=== PATIENT | female | born 1985 | race African-American/Black ===

== ENCOUNTER 2016-08-01 06:26 | Emergency (ER) | payer MEDICAID ==
[~2016-08-01] VITALS: Ht 170.2 cm; Wt 57.0 kg
[~2016-08-01 06:26] MED LIST: ALBUTEROL
[2016-08-01] MEDS ORDERED: ALBUTEROL (0.083%) 2.5MG/3ML NEB HHN STA (06:49)
[2016-08-01] MEDS ORDERED: METHYLPREDNISOLONE SOD SUCC 125 MG/2 ML VIAL IV STA (06:49)
[2016-08-01] MEDS ORDERED: IPRATROPIUM BROMIDE (0.02%) 0.5MG/2.5ML NEB HHN STA (06:49)
[2016-08-01] MEDS ORDERED: IPRATROPIUM/ALBUTEROL 0.5-3(2.5)MG/3ML NEB ONE (07:00)
[2016-08-01 09:45] VITALS: BP 112/70
== END 2016-08-01 09:54 | disposition home or self-care (01) ==
LOC: ER 07:55
DX: J45.901 Unspecified asthma with (acute) exacerbation (principal); F17.200 Nicotine dependence, unspecified, uncomplicated; F12.10 Cannabis abuse, uncomplicated
CPT/HCPCS: 94640; 96374; 99284; J2930; J7611; Z7610; J7620

== ENCOUNTER 2017-02-02 01:16 | Emergency (ER) | payer MEDICAID ==
[~2017-02-02] VITALS: Ht 167.6 cm; Wt 56.0 kg
[2017-02-02] MEDS ORDERED: PREDNISONE 20MG TABLET PO ONE (07:15)
[2017-02-02 07:30] VITALS: BP 122/69
== END 2017-02-02 08:08 | disposition home or self-care (01) ==
LOC: ER 01:37
DX: J45.901 Unspecified asthma with (acute) exacerbation (principal)
CPT/HCPCS: 99283

== ENCOUNTER 2019-11-29 08:11 | Emergency (ER) | payer MEDICAID, OTHER ==
[~2019-11-29] VITALS: Ht 170.2 cm; Wt 57.0 kg
[2019-11-29] MEDS ORDERED: IBUPROFEN 600MG TABLET PO ONE (08:45)
[2019-11-29 09:30] VITALS: BP 121/63
== END 2019-11-29 09:32 | disposition home or self-care (01) ==
LOC: ER 08:25
DX: K04.7 Periapical abscess without sinus (principal); K08.89 Other specified disorders of teeth and supporting structures; J45.909 Unspecified asthma, uncomplicated
CPT/HCPCS: 99282

== ENCOUNTER 2024-07-24 21:03 | Emergency (ER) | payer SELFPAY ==
[~2024-07-24] VITALS: Ht 172.7 cm; Wt 62.0 kg
[2024-07-24 21:04] VITALS: O2SAT 99
[2024-07-24 21:25] VITALS: TEMP 36.4
[2024-07-24] MEDS ORDERED: ALBUTEROL (0.083%) 2.5MG/3ML NEB HHN STA (23:29)
[2024-07-24] MEDS ORDERED: IPRATROPIUM BROMIDE (0.02%) 0.5MG/2.5ML NEB HHN STA (23:29)
[2024-07-24 23:36] LABS: BASOPHILS % 0.4 % (0.0-2.0); DIFFERENTIAL COMMENT 0; EOSINOPHILS % 0.5 % (0.0-5.0); HEMATOCRIT. 41.4 % (36.0-48.0); HEMOGLOBIN. 14.1 g/dL (12.0-16.0); MEAN CORPUSCULAR HEMOGLOBIN 31.4 pg (28.0-32.0); MEAN CORPUSCULAR HGB CONC 33.9 g/dL (31.0-37.0); MEAN CORPUSCULAR VOLUME 92.6 fL (81.0-99.0); MEAN PLATELET VOLUME 6.8 fl (7.4-10.4); MONOCYTES % 3.6 % (2.0-8.0); NEUTROPHILS % 85.5 % (40.0-76.0); PLATELET 258 x1000/uL (130-400); RED BLOOD CELL COUNT 4.48 mill/uL (4.2-5.4); RED CELL DISTRIBUTION WIDTH 17.8 % (11.6-14.6); WHITE BLOOD COUNT 12.2 x1000/uL (4.5-11.0)
[2024-07-24] MEDS: MORPHINE SULFATE 4 MG/ML INJ (FOR IV/IM USE) IV STA (23:42)
[2024-07-24] MEDS: PREDNISONE 20MG TABLET PO STA (23:43)
[2024-07-24] MEDS: SODIUM CHLORIDE 0.9% 1,000 ML IV ONE (23:43)
[2024-07-24] MEDS: ONDANSETRON HCL 4MG/2ML INJ IV STA (23:43)
[2024-07-24 23:56] LABS: CHLORIDE 107 mEq/L (98-107); POTASSIUM 3.6 mEq/L (3.5-5.1); SODIUM 138 mEq/L (136-145)
[2024-07-24 23:58] LABS: CALCIUM 9.4 mg/dL (8.7-10.4); CARBON DIOXIDE 24 mEq/L (21-32)
[2024-07-25 00:03] LABS: CREATININE 0.9 mg/dL (0.6-1.0); GLUCOSE 85 mg/dL (70-105); UREA NITROGEN BLOOD 5 mg/dL (9-23)
[2024-07-25 00:04] LABS: ETHANOL BLOOD < 10 mg/dL (<10)
[2024-07-25 00:05] LABS: ALANINE AMINOTRANSFERASE 14 IU/L (10-49); ALBUMIN 4.5 g/dL (3.2-4.8); ASPARTATE AMINOTRANSFERASE 17 IU/L (<34); BILIRUBIN DIRECT 0.1 mg/dL (<=3.0); BILIRUBIN TOTAL 0.4 mg/dL (0.1-1.0); PROTEIN TOTAL 7.5 g/dL (6.0-8.3)
[2024-07-25 01:36] VITALS: BP 122/72; PULSE 81; RESP 22; O2SAT 100
[2024-07-25 01:46] LABS: HCG SCREEN NEGATIVE
== END 2024-07-25 02:44 | disposition left against medical advice (07) ==
LOC: ER 21:03
DX: R10.30 Lower abdominal pain, unspecified (principal); J45.901 Unspecified asthma with (acute) exacerbation; F17.200 Nicotine dependence, unspecified, uncomplicated; F12.90 Cannabis use, unspecified, uncomplicated
CPT/HCPCS: 80076; 80048; 80320; 84703; 83690; 85025; 85610; 36415; 96361; 96374; 96375; 99285; 74176; J7512; J2405; J2270; J7030; Z7610 ×3; A4606; G0480